=== PATIENT | male | born 1940 ===

== ENCOUNTER 2019-07-03 13:45 | Outpatient (CLI) | payer OTHER | END 2019-07-03 13:47 | disposition home or self-care (01) | LOC: RAD 13:45 | DX: M25.511 Pain in right shoulder (principal) ==

== ENCOUNTER 2019-08-09 07:52 | Outpatient (CLI) | payer OTHER | END 2019-08-09 07:54 | disposition home or self-care (01) | LOC: TOM 07:52 | DX: M19.011 Primary osteoarthritis, right shoulder (principal) ==

== ENCOUNTER 2019-08-09 08:56 | Outpatient (CLI) | payer OTHER | END 2019-08-09 15:00 | disposition home or self-care (01) | LOC: LAB 08:56 | DX: I49.8 Other specified cardiac arrhythmias (principal); Z76.89 Persons encountering health services in other specified circumstances; D64.89 Other specified anemias; E88.89 Other specified metabolic disorders; D68.8 Other specified coagulation defects; N39.0 Urinary tract infection, site not specified; Z22.322 Carrier or suspected carrier of Methicillin resistant Staphylococcus aureus ==

== ENCOUNTER → 2019-08-09 | Outpatient (CLI) | payer OTHER | END | disposition home or self-care (01) | LOC: NUCLEAR 12:57 | DX: M81.0 Age-related osteoporosis without current pathological fracture (principal) ==